=== PATIENT | female | born 1985 | race Two or more races ===

== ENCOUNTER 2022-12-19 17:06 | Emergency (ER) | payer OTHER ==
[~2022-12-19] VITALS: Ht 165.1 cm; Wt 60.8 kg
== END 2022-12-19 20:35 | disposition home or self-care (01) ==
LOC: ER 17:06
DX: R10.9 Unspecified abdominal pain (principal)

== ENCOUNTER 2023-06-01 09:52 | Inpatient (IN) | payer OTHER ==
[~2023-06-01] VITALS: Ht 165.1 cm; Wt 71.2 kg
[2023-06-08] MEDS ORDERED: PRENATAL TABLE1 EAC1 PO (17:07)
== END 2023-06-11 13:27 | disposition home or self-care (01) | DRG 807 ==
LOC: LDR 06-08 22:02 → OB/GYN 06-09 16:39 → LDR 06-20 15:15
PROVIDERS: Obstetrics & Gynecology Gynecology; ADMIT Obstetrics & Gynecology; ATTEND Obstetrics & Gynecology
PROC: 4A1HXCZ Monitoring of Products of Conception, Cardiac Rate, External Approach (ICD-10-PCS; 2023-06-08)
PROC: 10E0XZZ Delivery of Products of Conception, External Approach (ICD-10-PCS; principal; 2023-06-09)
PROC: 0KQM0ZZ Repair Perineum Muscle, Open Approach (ICD-10-PCS; 2023-06-09)
DX: O70.1 Second degree perineal laceration during delivery (principal); Z37.0 Single live birth; Z3A.38 38 weeks gestation of pregnancy; Z20.822 Contact with and (suspected) exposure to COVID-19

== ENCOUNTER 2023-06-06 16:59 | Outpatient (CLI) | payer OTHER | END 2023-06-06 17:49 | disposition home or self-care (01) | LOC: NST 16:59 | PROVIDERS: ATTEND Obstetrics & Gynecology | DX: Z34.83 Encounter for supervision of other normal pregnancy, third trimester (principal) ==

== ENCOUNTER 2023-06-08 16:45 | Outpatient (CLI) | payer OTHER ==
[~2023-06-08] VITALS: Ht 165.1 cm; Wt 71.2 kg
[2023-06-08] MEDS ORDERED: PRENATAL TABLE1 EAC1 PO (17:07)
[2023-06-08 20:28] LABS: HEMATOCRIT 38.7 % (36.0-45.00); HEMOGLOBIN 13.1 g/dL (12.0-15.00); MEAN CELL VOLUME 85.6 fL (80.00-100.00); MEAN CORPUSCULAR HEMOGLOBIN 29.1 pg (27.00-32.0); PLATELET COUNT 233 K/uL (150-450); RED BLOOD COUNT 4.52 M/uL (4.00-6.00)
[2023-06-08 20:57] LABS: BILIRUBIN TOTAL 0.13 mg/dL (0.3-1.2); CALCIUM 9.9 mg/dL (8.5-10.1); CREATININE SERUM 0.85 mg/dL (0.55-1.02); GFR 76.11; POTASSIUM 4.11 mEq/L (3.5-5.1)
[2023-06-08 21:28] LABS: FIBRINOGEN 398 mg/dL (187.0-446.0); INR < 0.93; PARTIAL THROMBOPLASTIN TIME 24.7 SECONDS (22.0-34.0); PROTHROMBIN TIME 9.6 SECONDS (9.0-11.5)
[2023-06-08 22:24] LABS: URINE APPEARANCE Clear; URINE BILIRRUBIN Negative (NEGATIVE); URINE BLOOD Large; URINE COLOR Yellow; URINE GLUCOSE Negative (NEGATIVE); URINE LEUKOCYTE Trace; URINE NITRATE Negative; URINE PROTEIN Trace (NEGATIVE); URINE UROBILINOGEN 0.2 E.U./dl
[2023-06-08 22:48] LABS: URINE BACTERIA 80.3 uL (0.0-1933); URINE EPITHELIAL CELLS 13.9 uL (0.0-38.8); URINE RBC 2142.9 uL (0.0-20.8); URINE WBC 7.5 uL (0.0-23.2)
== END 2023-06-08 21:59 | disposition still patient (30) ==
LOC: OBS/DEL 16:45
PROVIDERS: ATTEND Obstetrics & Gynecology
DX: O46.8X3 Other antepartum hemorrhage, third trimester (principal); Z3A.38 38 weeks gestation of pregnancy; Z20.822 Contact with and (suspected) exposure to COVID-19